=== PATIENT | female | born 1960 | race Caucasian/White ===

== ENCOUNTER 2019-03-28 12:52 | Emergency (ER) | payer SELFPAY ==
--- NOTE | 2019-03-28 13:21 | UC ---
General HPI - HPI Summary HPI Summary: Here with worsening cough and sore throat. Symptoms have been going on for more than a week. Concerned that her cough has gotten worse over the past few days and her throat is not more scratchy. Dry cough. Tried mucinex and delsym without much improvement. No fevers. no weight loss. No hx of inhalers or nebulizers. Quit smoking 9 years ago smoked 1/2 ppd x 20 years. Meds; reviewed No hx of seasonal allergies - History of Current Complaint Chief Complaint: UCRespiratory Stated Complaint: SORE THROAT COUGH Time Seen by Provider: 03/28/19 13:08 Pain Intensity: 0 - Allergy/Home Medications Allergies/Adverse Reactions: Allergies Allergy/AdvReac Type Severity Reaction Status Date / Time No Known Allergies Allergy Verified 03/28/19 13:06 Home Medications: Home Medications ALPRAZolam TAB* [Xanax TAB*] 0.5 mg PO TID PRN 03/28/19 [History Confirmed 03/28] Naproxen Sodium [Aleve] 220 - 440 mg PO Q12HR PRN 03/28/19 [History Confirmed ] PMH/Surg Hx/FS Hx/Imm Hx Previously Healthy: Yes - Surgical History Surgical History: Yes Surgery Procedure, Year, and Place: Right Third Trigger Finger, ~2015, [place]; Cervical Fusion, 2007, [place]; Right Carpal Tunnel, ~2000, [facility] - Social History Alcohol Use: daily "evening cocktail" Substance Use Type: None Smoking Status (MU): Former Smoker Length of Time of Smoking/Using Tobacco: 1/2 PPD x 20 Years When Did the Patient Quit Smoking/Using Tobacco: 2009 Review of Systems All Other Systems Reviewed And Are Negative: Yes ENT: Positive: Sore Throat Respiratory: Positive: Cough Physical Exam Triage Information Reviewed: Yes Appearance: Well-Appearing Vital Signs: Initial Vital Signs Temp 98.1 F 03/28/19 13:03 Pulse 78 03/28/19 13:03 Resp 18 03/28/19 13:03 BP 161/69 03/28/19 13:03 Pulse Ox 99 03/28/19 13:03 ENT: Positive: Pharyngeal erythema, TMs normal Neck: Positive: Supple, Nontender Respiratory: Positive: Other: - diminished breath sounds b/l. No increase in wob. No W/R/R Cardiovascular: Positive: RRR, No Murmur Diagnostics - Radiology CXR Radiology Interpretation Completed By: Radiologist Summary of Radiographic Findings: No acute finding Course/Dx - Course Course Of Treatment: This is a 58 yr old exsmoker with worsening cough over the past week Assessment No respiratory distress CXR: No acute finding Plan Recommend tessalon pearls as needed for cough Continue rest, fluids and supportive care Can use ibuprofen for pain as needed If symptoms persist, or worsen, recommend follow up with PCP or return to urgent care - Diagnoses Provider Diagnosis: Upper respiratory tract infection Discharge - Sign-Out/Discharge Documenting (check all that apply): Patient Departure All imaging exams completed and their final reports reviewed: Yes - Discharge Plan Condition: Fair Disposition: HOME Prescriptions: Benzonatate CAP* [Tessalon 100 MG CAP*] 200 mg PO TID PRN #30 cap PRN Reason: Cough Patient Education Materials: Upper Respiratory Infection (ED) Referrals: No Primary Care Phys,NOPCP [Primary Care Provider] - Additional Instructions: Recommend tessalon pearls as needed for cough Continue rest, fluids and supportive care Can use ibuprofen for pain as needed If symptoms persist, or worsen, recommend follow up with PCP or return to urgent care - Billing Disposition and Condition Condition: FAIR Disposition: Home
[2019-03-28 13:53] VITALS: BP 118/72
== END 2019-03-28 13:53 | disposition home or self-care (01) ==
LOC: UCCORT 12:52
DX: J06.9 Acute upper respiratory infection, unspecified (principal); Z87.891 Personal history of nicotine dependence
CPT/HCPCS: 71046; 99202; G0463

== ENCOUNTER 2019-12-04 07:19 | Emergency (ER) | payer OTHER ==
[2019-12-04 07:46] VITALS: BP 123/67
--- NOTE | 2019-12-04 07:57 | UC ---
Ear Complaint HPI - HPI Summary HPI Summary: left ear pain x 2 days pain started as severe 8 out 10 , now it is better 6 out 10 had severe pressure in the left ear, had bloody discharge yesterday and pain is better now, has decrease in hearing and ringing of the left ear cold symptoms for the past week with cough , nasal congestion , low grade fever - History of Current Complaint Chief Complaint: UCGeneralIllness Stated Complaint: L EAR COMP/SINUSES Time Seen by Provider: 12/04/19 07:46 Hx Obtained From: Patient Onset/Duration: Gradual Onset, Lasting Days - 2, Still Present Severity Initially: Severe Severity Currently: Moderate Pain Intensity: 0 Aggravating Factors: Cold Alleviating Factors: Nothing Associated Signs/Symptoms: Positive: Discharge - bloody, Hearing Loss, URI Symptoms. Negative: Foreign Body Sensation, Trauma to Ear, Swelling @ - Allergies/Home Medications Allergies/Adverse Reactions: Allergies Allergy/AdvReac Type Severity Reaction Status Date / Time No Known Allergies Allergy Verified 12/04/19 07:47 Home Medications: Home Medications ALPRAZolam TAB* [Xanax TAB*] 0.5 mg PO TID PRN 03/28/19 [History Confirmed 12/04] Amoxicillin/Clavulanate TAB* [Augmentin TAB 875*] 875 mg PO BID #20 tab [Rx] PMH/Surg Hx/FS Hx/Imm Hx Psychological History: Anxiety - Surgical History Surgical History: Yes Surgery Procedure, Year, and Place: Right Third Trigger Finger, ~2015, [place]; Cervical Fusion, 2007, [place]; Right Carpal Tunnel, ~2000, [facility] - Family History Known Family History: Negative: Diabetes - Social History Alcohol Use: Daily Substance Use Type: None Smoking Status (MU): Former Smoker Length of Time of Smoking/Using Tobacco: 1/2 PPD x 20 Years When Did the Patient Quit Smoking/Using Tobacco: 2009 Review of Systems All Other Systems Reviewed And Are Negative: Yes Constitutional: Positive: Fever. Negative: Chills, Fatigue Skin: Positive: Negative Eyes: Positive: Negative ENT: Positive: Ear Ache, Nasal Discharge. Negative: Sore Throat Respiratory: Positive: Cough Is Patient Immunocompromised?: No Physical Exam Triage Information Reviewed: Yes Appearance: Well-Appearing, No Pain Distress, Well-Nourished Vital Signs: Initial Vital Signs Temp 97.7 F 12/04/19 07:43 Pulse 85 12/04/19 07:43 Resp 14 12/04/19 07:43 BP 123/67 12/04/19 07:43 Pulse Ox 98 12/04/19 07:43 Vital Signs Reviewed: Yes Eye Exam: Normal Eyes: Positive: Conjunctiva Clear ENT: Positive: Normal ENT inspection, Hearing grossly normal, Nasal congestion, TM bulging - left, TM dull - left, TM red - left. Negative: Nasal drainage Neck: Positive: Supple, Nontender, No Lymphadenopathy Respiratory: Positive: Chest non-tender, Lungs clear, Normal breath sounds Cardiovascular: Positive: RRR, No Murmur, Pulses Normal Ear Complaint Course/Dx - Differential Dx/Diagnosis Provider Diagnosis: Otitis media of left ear Discharge ED - Sign-Out/Discharge Documenting (check all that apply): Patient Departure All imaging exams completed and their final reports reviewed: No Studies - Discharge Plan Condition: Stable Disposition: HOME Prescriptions: Amoxicillin/Clavulanate TAB* [Augmentin TAB 875*] 875 mg PO BID #20 tab Patient Education Materials: Ear Infection (ED) Referrals: Leroy Baker MD [Primary Care Provider] - 7 Days - Billing Disposition and Condition Condition: STABLE Disposition: Home
== END 2019-12-04 07:56 | disposition home or self-care (01) ==
LOC: UCCORT 07:19
DX: H66.92 Otitis media, unspecified, left ear (principal); R09.81 Nasal congestion; F41.9 Anxiety disorder, unspecified; Z87.891 Personal history of nicotine dependence; Z79.899 Other long term (current) drug therapy
CPT/HCPCS: 99212; G0463